=== PATIENT | female | born 1975 | race Caucasian/White ===

== ENCOUNTER 2017-07-27 14:10 | Emergency (ER) | payer BC ==
[~2017-07-27] VITALS: Ht 165.1 cm; Wt 65.9 kg
[~2017-07-27 14:10] MED LIST: BENTYL20 MG PO; FLEXERIL5 MG PO; KEFLEX500 MG PO; METRONIDAZOLE500 MG PO; MOTRIN600 MG PO; NO HOME MEDS
[2017-07-27 15:05] VITALS: BP 151/104
[2017-07-27] MEDS ORDERED: VENTOLIN HFA18 GM IH (17:42)
== END 2017-07-27 17:54 | disposition home or self-care (01) ==
LOC: EME 14:10
DX: R06.2 Wheezing (principal); R05 Cough; F17.200 Nicotine dependence, unspecified, uncomplicated; Z88.2 Allergy status to sulfonamides; Z88.0 Allergy status to penicillin; Z88.6 Allergy status to analgesic agent; Z88.1 Allergy status to other antibiotic agents; Z88.8 Allergy status to other drugs, medicaments and biological substances
CPT/HCPCS: 71046; 87502; 94640; 99281; 99285

== ENCOUNTER 2017-09-30 13:59 | Emergency (ER) | payer BC ==
[~2017-09-30] VITALS: Ht 162.6 cm; Wt 68.6 kg
[~2017-09-30 13:59] MED LIST changes: +VENTOLIN HFA18 GM IH
[2017-09-30 14:43] LABS: CHLORIDE 107 mEq/L (99-109); POTASSIUM 4.3 mEq/L (3.7-5.4); SODIUM 142 mEq/L (136-147)
[2017-09-30 14:45] LABS: GLUCOSE 99 mg/dL (70-99)
[2017-09-30 14:48] LABS: HEMATOCRIT 32.2 % (36.0-46.0); HEMOGLOBIN 9.5 G/DL (11.9-15.5); MCH 21.2 PG (29.0-34.0); MCHC 29.5 G/DL (30.0-36.0); MCV 71.9 FL (83-99); PLATELET COUNT 249 K/uL (156-360); RBC DIS.WIDTH-CV 16.4 % (11.8-14.6); RED BLOOD COUNT 4.48 M/uL (3.80-5.20); WHITE BLOOD COUNT 8.2 K/uL (4.1-10.2)
[2017-09-30 14:49] LABS: CREATININE 0.7 mg/dL (0.6-1.3); GFR ESTIMATE (CALCULATED) > 59 mL/min/
[2017-09-30 14:50] LABS: UREA NITROGEN (BUN) 13 mg/dL (9-23)
[2017-09-30 14:55] LABS: TROP-I INTERPRETATION NEGATIVE; TROPONIN-I < 0.01 ng/mL (0.0-0.30)
[2017-09-30] MEDS ORDERED: HYDROCHLOROTHIA25 MG PO (15:16)
[2017-09-30 15:48] VITALS: BP 173/89
== END 2017-09-30 15:49 | disposition home or self-care (01) ==
LOC: EME 13:59
PROVIDERS: Emergency Medicine
DX: I10 Essential (primary) hypertension (principal); F17.200 Nicotine dependence, unspecified, uncomplicated; Z88.0 Allergy status to penicillin; Z88.2 Allergy status to sulfonamides; Z88.1 Allergy status to other antibiotic agents; Z88.6 Allergy status to analgesic agent; Z88.8 Allergy status to other drugs, medicaments and biological substances
CPT/HCPCS: 71046; 80048; 84484; 85027; 93005; 99281; 99284